=== PATIENT | male | born 1955 | race Caucasian/White ===

== ENCOUNTER 2021-01-27 12:25 | Emergency (ER) | payer OTHER, MEDICAID ==
[~2021-01-27] VITALS: Ht 177.8 cm; Wt 84.1 kg
[~2021-01-27 12:25] MED LIST: FLO0.1T PO; MIDO2.5T14 PO; PANT40TA54 PO
[2021-01-27 14:35] LABS: BASOPHILS % (AUTO) 1.2 % (0-1); EOSINOPHILS # (AUTO) 0.2 X10'3 (0-0.9); HEMATOCRIT 27.8 % (42.0-52.0); HEMOGLOBIN 9.6 g/dl (14.0-17.9); LYMPHOCYTES % (AUTO) 25.1 % (21-51); MEAN CORPUSCULAR HEMOGLOBIN 34.9 PG (27.0-31.0); MEAN CORPUSCULAR HGB CONC 34.6 g/dL (33.0-36.5); MEAN CORPUSCULAR VOLUME 100.9 FL (78-98); MEAN PLATELET VOLUME 8.5 FL (7.4-10.4); MONOCYTES # (AUTO) 0.4 X10'3 (0-0.9); MONOCYTES % (AUTO) 10.2 % (2-12); NEUTROPHILS # (AUTO) 2.3 X10'3 (1.8-7.7); NEUTROPHILS % (AUTO) 57.5 % (42-75); PLATELET COUNT 210 X10'3 (140-440); RED BLOOD COUNT 2.75 X10'6 (4.70-6.10)
[2021-01-27 15:00] LABS: ALANINE AMINOTRANSFERASE 43 U/L (12-78); ALBUMIN 1.3 G/DL (3.4-5.0); ALBUMIN/GLOBULIN RATIO 0.2 (1.1-1.5); ALKALINE PHOSPHATASE 94 IU/L (46-116); ANION GAP 5 (8-16); ASPARTATE AMINO TRANSFERASE 93 U/L (10-37); BILIRUBIN,TOTAL 1.2 MG/DL (0.1-1.0); BLOOD UREA NITROGEN 15 MG/DL (7-18); BUN/CREATININE RATIO 18.5 (5.4-32.0); CALCIUM 8.2 MG/DL (8.5-10.1); CHLORIDE 107 MMOL/L (99-107); CREATININE 0.81 MG/DL (0.60-1.10); GLUCOSE 84 MG/DL (70-104); POTASSIUM 3.5 MMOL/L (3.5-5.1); SODIUM 141 MMOL/L (135-145); TOTAL CARBON DIOXIDE 29.2 MMOL/L (24-32); TOTAL PROTEIN 6.8 G/DL (6.4-8.2); eGFR > 90 ML/MIN
[2021-01-27 15:04] LABS: LACTIC SEPSIS 1.1 MMOL/L (0.4-2.0)
[2021-01-27 15:09] LABS: TROPONIN I < 0.04 NG/ML (0.0-0.05)
[2021-01-27] MEDS ORDERED: furosemide 10 MG/1 ML 10ml inj IV ONE (15:15)
[2021-01-27] MEDS ORDERED: FURO-150 PO (15:26)
[2021-01-27] MEDS ORDERED: POTA10TA19 PO (15:26)
[2021-01-27 15:55] LABS: CLARITY,URINE CLEAR (Clear); COLOR,URINE YELLOW (Yellow); GLUCOSE, URINE NEGATIVE (Neg); KETONES,URINE TRACE mg/dl (Neg); LEUKOCYTE ESTERASE ,URINE NEGATIVE (Neg); NITRITES, URINE NEGATIVE (Neg); OCCULT BLOOD,URINE NEGATIVE (Neg); PH,URINE 5.5 (4.8-8.0); PROTEIN,URINE TRACE mg/dl (Neg)
[2021-01-27 16:00] VITALS: BP 141/90
[2021-01-27 16:00] LABS: UA COLLECTION TYPE VOIDED
[2021-01-27 16:02] LABS: BACTERIA,URINE NONE SEEN /HPF (Neg); MUCUS STRANDS FEW /LPF (Neg); RBC,URINE NONE SEEN /HPF (0-2); SQUAMOUS EPITHELIAL CELL,UR FEW /LPF (FEW); WBC,URINE NONE SEEN /HPF (0-4)
== END 2021-01-27 16:34 | disposition home or self-care (01) ==
LOC: ER 12:26
DX: I50.9 Heart failure, unspecified (principal); I11.0 Hypertensive heart disease with heart failure; D64.9 Anemia, unspecified; F10.20 Alcohol dependence, uncomplicated; N50.89 Other specified disorders of the male genital organs; Z60.2 Problems related to living alone; Z79.899 Other long term (current) drug therapy
CPT/HCPCS: 36415; 70450; 71045; 80053; 81001; 82140; 83605; 83880; 84484; 85025; 85610; 87040; 93005; 96374; 99285; J1940

== ENCOUNTER 2021-02-11 15:50 | Emergency (ER) | payer OTHER, MEDICAID ==
[~2021-02-11] VITALS: Ht 177.8 cm; Wt 84.1 kg
[~2021-02-11 15:50] MED LIST changes: +FURO-150 PO; +POTA10TA19 PO
[2021-02-11] MEDS ORDERED: furosemide 40mg/4ml inj IV ONE (17:05)
[2021-02-11 17:26] LABS: BASOPHILS % (AUTO) 0.7 % (0-1); EOSINOPHILS # (AUTO) 0.2 X10'3 (0-0.9); EOSINOPHILS % (AUTO) 5.2 % (0-6); HEMATOCRIT 25.7 % (42.0-52.0); HEMOGLOBIN 8.8 g/dl (14.0-17.9); LYMPHOCYTES # (AUTO) 1.1 X10'3 (1.1-4.8); LYMPHOCYTES % (AUTO) 26.4 % (21-51); MEAN CORPUSCULAR HGB CONC 34.2 g/dL (33.0-36.5); MEAN CORPUSCULAR VOLUME 99.3 FL (78-98); MEAN PLATELET VOLUME 8.4 FL (7.4-10.4); MONOCYTES # (AUTO) 0.4 X10'3 (0-0.9); MONOCYTES % (AUTO) 10.8 % (2-12); NEUTROPHILS # (AUTO) 2.3 X10'3 (1.8-7.7); NEUTROPHILS % (AUTO) 56.9 % (42-75); PLATELET COUNT 171 X10'3 (140-440); RED BLOOD COUNT 2.59 X10'6 (4.70-6.10); RED CELL DISTRIBUTION WIDTH 14.7 % (11.5-14.5)
[2021-02-11 17:37] LABS: D-DIMER 2.28 MG/L FEU (0-0.50)
[2021-02-11 17:40] LABS: ANION GAP 3 (8-16); BLOOD UREA NITROGEN 16 MG/DL (7-18); BUN/CREATININE RATIO 18.2 (5.4-32.0); CHLORIDE 109 MMOL/L (99-107); CREATININE 0.88 MG/DL (0.60-1.10); GLUCOSE 86 MG/DL (70-104); POTASSIUM 3.4 MMOL/L (3.5-5.1); SODIUM 140 MMOL/L (135-145); TOTAL CARBON DIOXIDE 27.7 MMOL/L (24-32)
[2021-02-11 17:41] LABS: ALANINE AMINOTRANSFERASE 39 U/L (12-78); ALBUMIN 1.7 G/DL (3.4-5.0); ALBUMIN/GLOBULIN RATIO 0.4 (1.1-1.5); ALKALINE PHOSPHATASE 83 IU/L (46-116); ASPARTATE AMINO TRANSFERASE 81 U/L (10-37); BILIRUBIN,TOTAL 0.7 MG/DL (0.1-1.0); CALCIUM 7.9 MG/DL (8.5-10.1); TOTAL PROTEIN 5.9 G/DL (6.4-8.2); eGFR 87 ML/MIN
[2021-02-11 17:42] VITALS: BP 126/99
--- NOTE | 2021-02-11 17:44 | NUR ---
bruno [phone]
[2021-02-11] MEDS ORDERED: potassium Cl 20 mEq SR tablet PO STA (18:51)
[2021-02-11] MEDS ORDERED: POTA10TA10 PO (19:24)
[2021-02-12 06:14] LABS: OCCULT BLOOD STOOL NEGATIVE (Neg)
== END 2021-02-11 19:55 | disposition home or self-care (01) ==
LOC: ER 15:52
DX: D64.9 Anemia, unspecified (principal); E87.6 Hypokalemia; R60.0 Localized edema; I10 Essential (primary) hypertension; Z60.2 Problems related to living alone; Z79.899 Other long term (current) drug therapy
CPT/HCPCS: 36415; 71045; 80053; 82272; 83880; 85025; 85379; 93005; 96374; 99285; J1940